=== PATIENT | female | born 1995 | race Caucasian/White ===

== ENCOUNTER 2017-01-15 16:01 | Emergency (ER) | payer BC | END 2017-01-15 20:15 | disposition home or self-care (01) | LOC: ER 16:01 | DX: J20.9 Acute bronchitis, unspecified (principal) | CPT/HCPCS: 84703; 99283; A9270-GY ==

== ENCOUNTER 2017-02-20 21:34 | Emergency (ER) | payer BC | END 2017-02-20 23:13 | disposition home or self-care (01) | LOC: ER 21:34 | DX: M25.562 Pain in left knee (principal); W19.XXXA Unspecified fall, initial encounter | CPT/HCPCS: 73560-LT; A9270-GY; J1885 ==